=== PATIENT | male | born 1980 | race Caucasian/White ===

== ENCOUNTER 2016-08-08 13:30 | Emergency (ER) | payer OTHER ==
[~2016-08-08] VITALS: Ht 172.7 cm; Wt 67.3 kg
[~2016-08-08 13:30] MED LIST: FLEXERIL10 MG PO; LORCET PLUS 7.1 EACH PO; PREDNISONE10 MG PO; ZESTRIL20 MG PO
[2016-08-08] MEDS ORDERED: LIDODERM 5% P1 PATCH TD (14:05)
[2016-08-08] MEDS ORDERED: PREDNISONE20 MG PO (14:05)
[2016-08-08] MEDS ORDERED: INDOCIN50 MG PO (14:05)
[2016-08-08] MEDS ORDERED: VALIUM5 MG PO (14:08)
[2016-08-08 14:20] VITALS: BP 142/81
== END 2016-08-08 14:22 | disposition home or self-care (01) ==
LOC: EME 13:30 → EXP 13:30
DX: M54.42 Lumbago with sciatica, left side (principal); G89.29 Other chronic pain; I10 Essential (primary) hypertension; F17.200 Nicotine dependence, unspecified, uncomplicated
CPT/HCPCS: 99281; 99284; J7512

== ENCOUNTER → 2016-09-06 | Outpatient (CLI) | payer OTHER ==
[~2016-09-06] MED LIST changes: +INDOCIN50 MG PO; +LIDODERM 5% P1 PATCH TD; +PREDNISONE20 MG PO; +VALIUM5 MG PO
== END | disposition home or self-care (01) ==
LOC: AMB 12:56
PROC: 0QJYXZZ Inspection of Lower Bone, External Approach (ICD-10-PCS; principal; 2016-09-06)
DX: M54.9 Dorsalgia, unspecified (principal); M79.605 Pain in left leg; M25.559 Pain in unspecified hip; Z53.09 Procedure and treatment not carried out because of other contraindication

== ENCOUNTER → 2016-10-12 | Outpatient (CLI) | payer OTHER | END | disposition home or self-care (01) | LOC: AMB 09-09 13:00 | DX: M51.16 Intervertebral disc disorders with radiculopathy, lumbar region (principal) | CPT/HCPCS: 62304; 72132 ==